=== PATIENT | male | born 1965 ===

== ENCOUNTER 2020-04-23 09:32 | Outpatient (CLI) | payer OTHER | END 2020-04-23 10:17 | disposition home or self-care (01) | LOC: NUCLEAR 09:32 | PROVIDERS: ATTEND Internal Medicine Sports Medicine | DX: I82.403 Acute embolism and thrombosis of unspecified deep veins of lower extremity, bilateral (principal); I87.2 Venous insufficiency (chronic) (peripheral); M71.22 Synovial cyst of popliteal space [Baker], left knee; M71.21 Synovial cyst of popliteal space [Baker], right knee ==